=== PATIENT | male | born 1960 | race Caucasian/White ===

== ENCOUNTER 2019-05-16 10:55 | Outpatient (CLI) | payer OTHER ==
--- NOTE | 2019-05-16 12:22 | RAD ---
LUMBAR SPINE SERIES 3 VIEWS: Date: 05/16/19 HISTORY: Spine surgery 10 years ago, low back and SI joint pain off and on for years. FINDINGS: Bilateral pedicle screws with vertical and horizontal connecting rods are seen at the L4-5 level with minimal spondylolisthesis of 5-6 mm. Marked disc narrowing at what is designated as the L5-S1 level may be congenital. Prominent osteophytic changes are seen at L2-3. IMPRESSION: Postoperative changes and arthritic changes of the spine. POS: TPC
--- NOTE | 2019-05-16 12:23 | RAD ---
SI JOINTS 3 VIEWS: Date: 05/16/19 HISTORY: SI joint pain. FINDINGS: SI joints are symmetric in appearance. No bony ankylosis. No erosive change. Postoperative changes of the lumbar spine are noted. IMPRESSION: Unremarkable Si joints. POS: TPC
== END 2019-05-16 10:56 | disposition home or self-care (01) ==
LOC: SCSRAD 10:55
PROVIDERS: ATTEND Family Medicine
DX: M47.896 Other spondylosis, lumbar region (principal); M47.898 Other spondylosis, sacral and sacrococcygeal region; M46.96 Unspecified inflammatory spondylopathy, lumbar region
CPT/HCPCS: 36415; 72100; 72202; 80053; 80061; 81001; 85025; G0103

== ENCOUNTER 2019-05-23 13:55 | Outpatient (CLI) | payer OTHER ==
--- NOTE | 2019-05-23 15:55 | BD ---
BONE DENSITOMETRY USING DEXA: HISTORY: Osteoarthritis of the spine. BMD (g/cm2) RIGHT HIP: Femoral Neck: 0.866 T-Score: -0.5 Z-Score: 0.5 Total Femur: 1.125 T-Score: 0.6 Z-Score: 1.1 LEFT HIP: Femoral Neck: 0.923 T-Score: 0.0 Z-Score: 0.9 Total Femur: 1.204 T-Score: 1.1 Z-Score: 1.6 Impression: Normal bone mineral density. POS: NE
== END 2019-05-23 13:56 | disposition home or self-care (01) ==
LOC: BICMAMMO 13:55
PROVIDERS: ATTEND Family Medicine
DX: M47.899 Other spondylosis, site unspecified (principal)
CPT/HCPCS: 77080

== ENCOUNTER 2019-08-07 07:06 | Day surgery (SDC) | payer OTHER ==
[2019-08-04 15:15] VITALS: BMI 26.4
--- NOTE | 2019-08-07 09:18 | RAD ---
LUMBAR MYELOGRAM: HISTORY: Low back pain. Lumbar radiculopathy. EXPOSURE: 0.6 minutes, 257.9 mGy*^m2. FINDINGS: Two views lumbar spine radiograph demonstrate 5 lumbar-type vertebrae. Bilateral transpedicular scre ws at L4-L5. There is evidence of bone graft material along the posterior elements. No perihardware lucency. 5.1 mm of anterolisthesis of L4 upon L5. Successful lumbar puncture. A total of 8 cc of M200 contrast was administered intrathecally. There ar e no immediate postprocedure complications. TECHNIQUE: Consent was obtained to perform a lumbar puncture for intrathecal contrast administration. Patient's back was evaluated. The L1-L2 level was deemed appropriate. Skin was prepped and draped in sterile fashion. 1% lidocaine, buffered with sodium bicarbonate was used for local anesthesia. Under fluorosc opic guidance, a 22-gauge spinal needle was advanced into the CSF space. Via a short tubing catheter, a total of 8 cc of Isovue-M 200 contrast was administered intrathecally. Patient tolerated the procedure well. No immediate or postprocedure complications. IMPRESSION: Successful lumbar puncture for lumbar myelogram. Transcribed Date/Time: 08/07/2019 9:35 AM
--- NOTE | 2019-08-07 09:42 | CT ---
POSTMYELOGRAM LUMBAR SPINE CT: HISTORY: Lumbar radiculopathy. Low back pain. COMPARISON: None. FINDINGS: No paraspinal mass or lymphadenopathy or hematoma. Symmetric attenuation of the psoas muscles. Visualized alimentary canal and solid organs are unremarkable. Conus medullaris terminates at the T12 level. Bilateral transpedicular screws at L4 and L5 without perihardware lucency. Posterior bone graft mater ial is noted. 5.3 mm of anterolisthesis of L4 upon L5. 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 T10-T11 and T11-T12: No significant central canal stenosis or significant neural foraminal narrowing. T12-L1: Vacuum disc phenomenon without significant loss of disc space height. No significant central canal stenosis or significant neural foraminal narrowing. L1-L2: Broad-based disc bulge with small left and right paracentral disc protrusions. Minimal ligamen t flavum thickening and facet hypertrophy. Mild central canal stenosis. Bilaterally the neural foramina are patent. L2-L3: Broad-based disc bulge with minimal left and right paracentral disc protrusions. No significan t central canal stenosis. No significant neural foraminal narrowing. L3-L4: Broad-based disc bulge with at least mild central canal stenosis. Mild to moderate bilateral f oraminal narrowing. Limited evaluation due to beam attenuation artifact. L4-L5: Calcification of the disc along with moderate loss of disc space height. No high-grade central canal stenosis. Mild bilateral foraminal narrowing. L5-S1: No significant central canal stenosis or significant foraminal narrowing. IMPRESSION: Lumbar fusion at L4-L5 as detailed above. There are varying degrees of central canal stenosis and lamar ral foraminal narrowing as detailed above. Transcribed Date/Time: 08/07/2019 9:47 AM
[2019-08-07] MEDS ORDERED: Iopamidol-M 200 41% 20 ML VIAL ONE (11:22)
== END 2019-08-07 09:30 | disposition home or self-care (01) ==
LOC: RAD 07:06
PROVIDERS: ATTEND Neurological Surgery
PROC: B02B1ZZ Computerized Tomography (CT Scan) of Spinal Cord using Low Osmolar Contrast (ICD-10-PCS; principal; 2019-08-07)
DX: M54.16 Radiculopathy, lumbar region (principal); M43.16 Spondylolisthesis, lumbar region; K21.9 Gastro-esophageal reflux disease without esophagitis; Z87.891 Personal history of nicotine dependence
CPT/HCPCS: 62304; 72132; Q9966